=== PATIENT | male | born 1950 | race Two or more races ===

== ENCOUNTER → 2018-09-21 | Outpatient (CLI) | payer OTHER ==
[~2018-09-21] MED LIST: AMOX1TAB12 PO; FENOFIBRATE40 MG; GLIMEPIRIDE4 MG; INVOKANA300 MG; OSEL75CA PO
== END | disposition home or self-care (01) ==
LOC: NUCLEAR 15:35
DX: I87.2 Venous insufficiency (chronic) (peripheral) (principal)

== ENCOUNTER 2019-06-09 12:32 | Outpatient (CLI) | payer OTHER | END 2019-06-09 12:45 | disposition home or self-care (01) | LOC: SONOGRAMA 12:32 | DX: M12.861 Other specific arthropathies, not elsewhere classified, right knee (principal); M12.862 Other specific arthropathies, not elsewhere classified, left knee ==

== ENCOUNTER 2019-11-19 10:56 | Outpatient (CLI) | payer OTHER | END 2019-11-19 11:05 | disposition home or self-care (01) | LOC: RAD 10:56 | PROVIDERS: ATTEND Internal Medicine Cardiovascular Disease | DX: M12.862 Other specific arthropathies, not elsewhere classified, left knee (principal); M12.89 Other specific arthropathies, not elsewhere classified, multiple sites ==

== ENCOUNTER 2023-06-16 17:33 | Outpatient (CLI) | payer OTHER ==
[2023-06-16 18:19] LABS: HEMATOCRIT 42.6 % (39.0-48.0); HEMOGLOBIN 14.4 g/dL (13-16.00); MEAN CELL VOLUME 86.8 fL (80.0-100.00); MEAN CORPUSCULAR HEMOGLOBIN 29.4 pg (27.00-32.0); MEAN CORPUSCULAR HGB CONC 33.8 g/dl (32.0-36.0); PLATELET COUNT 217 K/uL (150-450); RED BLOOD COUNT 4.91 M/uL (4.00-6.00); RED CELL DISTRIBUTION WIDTH 13.4 % (11.5-14.5)
[2023-06-16 18:44] LABS: MYCOPLASMA PNEUMONIAE IGM NON REACTIVE (NO REACTIVE)
== END 2023-06-16 17:37 | disposition home or self-care (01) ==
LOC: LAB 17:33
PROVIDERS: ATTEND Internal Medicine Cardiovascular Disease
DX: J11.1 Influenza due to unidentified influenza virus with other respiratory manifestations (principal); A49.3 Mycoplasma infection, unspecified site; Z20.822 Contact with and (suspected) exposure to COVID-19

== ENCOUNTER → 2023-07-16 07:22 | Outpatient (CLI) | payer OTHER | END | disposition home or self-care (01) | LOC: NUCLEAR 06:00 | PROVIDERS: ATTEND Internal Medicine Cardiovascular Disease | DX: M17.9 Osteoarthritis of knee, unspecified (principal); M46.47 Discitis, unspecified, lumbosacral region | CPT/HCPCS: 78315; A9503 ==

== ENCOUNTER 2024-11-24 10:10 | Outpatient (CLI) | payer OTHER | END 2024-11-24 10:15 | disposition home or self-care (01) | LOC: SONOGRAMA 10:10 | PROVIDERS: ATTEND Orthopaedic Surgery | DX: M25.552 Pain in left hip (principal) ==